=== PATIENT | female | born 1985 | race Caucasian/White ===

== ENCOUNTER 2024-05-07 13:50 | Emergency (ER) | payer MEDICAID, SELFPAY ==
[2024-05-07 13:57] VITALS: BP 156/97; PULSE 73; RESP 20; TEMP 36.8; O2SAT 97
--- NOTE | 2024-05-07 13:58 | XR_ITS ---
Examination: CT abdomen and pelvis without contrast. Coronal 3-D reconstructions. Sagittal 2-D reconstructions. Date and time of exam:May 07, 2024 1535 hrs. Indications: Right flank pain beginning 3 days ago CTDI: vol (mGy): 20.2 DLP: (mGycm): 1074 Technique: Axial images of the abdomen have been obtained, 3 mm slice thickness Intravenous contrast material has not been administered. Low dose protocols were performed. One or more of the following dose reduction techniques were used; automated exposure control, adjustment of the mA and/or KV according to patient size, use of iterative reconstruction technique. Findings: No focal liver or splenic lesions No gallstones No pancreatic or adrenal mass 5 mm nonobstructing right renal calculus, no hydronephrosis or ureteral calculi Normal appendix Anteverted uterus No adnexal mass No bladder mass Diffuse [id number] lumbar disc narrowing, 4 mm right paracentral L5-S1 lumbar disc bulge Impression: 5 mm nonobstructing right renal calculus, no hydronephrosis or ureteral calculi Normal appendix No bladder mass or bladder calculi L5-S1 4 mm right paracentral disc bulge
--- NOTE | 2024-05-07 13:59 | PD.EDRME ---
Rapid Medical Screening Exam RME Arrival date/time: 05/07/24 13:50 39-year-old female presents emergency department complaints of right flank pain Chief Complaint: Back Pain/Injury
[2024-05-07] MEDS: ONDANSETRON ODT 4 MG TABRAP PO (14:06)
[2024-05-07] MEDS: KETOROLAC INJ 30 MG/ML VIAL IM (14:06)
[2024-05-07 14:45] LABS: Basophils % (Auto) 0 % (0-2.5); Eosinophils % (Auto) 0 % (0-10); Hematocrit 42.5 % (36.0-46.0); Hemoglobin 14.3 g/dL (12.0-16.0); Immature Granulocytes % (Auto) 0 % (0-0); Immature Granulocytes Auto 0.06 Thou/mm3 (0.00-0.00); Lymphocytes # (Auto) 2.1 Thou/mm3 (1.0-4.8); Lymphocytes % (Auto) 14 % (10-50); Mean Corpuscular HGB Conc 33.6 g/dl (31.0-37.0); Mean Corpuscular Volume 77 fL (80-100); Monocytes # (Auto) 0.4 Thou/mm3 (0.0-0.8); Monocytes % (Auto) 3 % (0-12); Neutrophils # (Auto) 12.3 Thou/mm3 (1.8-7.7); Neutrophils % (Auto) 83 % (37-80); Nucleated Red Blood Cell % 0 /100 WBC (0); Platelet Count 281 Thou/mm3 (140-440); White Blood Count 14.8 Thou/mm3 (3.6-11.0)
[2024-05-07 14:59] LABS: Collection Type, Urine Clean Catch
[2024-05-07 15:01] LABS: Alanine Aminotransferase 22 U/L (10-49); Albumin/Globulin Ratio 2.1 (1.2-2.2); Alkaline Phosphatase 98 U/L (46-116); Anion Gap 10 (7-16); Aspartate Amino Transferase 16 U/L (0-34); BUN/Creatinine Ratio 13 Ratio (12-20); Bilirubin,Total 0.4 mg/dL (0.3-1.2); Blood Urea Nitrogen 8 mg/dL (9-23); Calcium 9.4 mg/dL (8.3-10.6); Calcium (Corrected) 9.4 mg/dL (8.5-10.1); Carbon Dioxide 24.3 mMol/L (20.0-31.0); Chloride 104 mMol/L (98-107); Creatinine (Component) 0.6 mg/dL (0.6-1.3); Globulin 2.4 gm/dL (2.3-3.5); Glucose 100 mg/dL (74-106); Lipase 32 U/L (12-53); Osmolality,Calculated 273 (275-295); Potassium 4.3 mMol/L (3.4-5.1); Sodium 138 mMol/L (136-145); Total Protein 7.4 gm/dL (5.7-8.2); eGFR > 60 See Note
[2024-05-07 15:13] LABS: Bilirubin,Urine Negative (Negative); Blood,Urine Negative (Negative); Clarity,Urine Clear (Clear/Hazy); Color,Urine Lt-Yellow (Lt Yel-Yel); Culture Indicated,Urine Not Indicated; Glucose, Urine Negative (Negative); Hyaline Casts,Urine < 1 /hpf (0-1); Ketones,Urine Negative (Negative); Leukocyte Esterase,Urine Negative (Negative); Nitrite,Urine Negative (Negative); PH,Urine 7.5 (5.0-7.0); Protein,Urine Trace (Neg - Trace); RBC,Urine 2 /hpf (0-3); Specific Gravity,Urine 1.021 (1.001-1.035); Squamous Epithelial Cell,Urine 3 /hpf (0-5); Urobilinogen,Urine Negative mg/dL (0.0-1.0); WBC,Urine 1 /hpf (0-5)
[2024-05-07 15:18] LABS: HCG Qualitative,Urine Negative
--- NOTE | 2024-05-07 17:48 | PD.EDBACK ---
ED Back Injury Pain RME/HPI General Chief Complaint: Back Pain/Injury Stated Complaint: SOMETHING WRONG WITH MY BACK Time Seen by Provider: 05/07/24 17:38 Arrival date/time: 05/07/24 13:50 RME / HPI RME / HPI Narrative: 39-year-old male patient, morbidly obese, came in for evaluation regarding right lumbar pain. Onset of symptoms earlier this morning, patient woke up with pain to the right lumbar area, described as sharp pain, radiating to the right lower abdomen. Patient denies any vomiting denies any fever denies any dysuria frequency or hematuria. Patient is ambulatory. Denies any trauma. Related Data Previous Rx's ?Medication ?Instructions ?Recorded albuterol sulfate 90 mcg/actuation 2 puff inhalation Q6HR PRN 06/23/15 aerosol inhaler (ProAir HFA) SHORTNESS OF BREATH #1 inh erythromycin 5 mg/gram (0.5 %) eye 1.25 cm ophthalmic (eye) TID 12/25/17 ointment conjunctivitis #1 g hydrocodone 5 mg-acetaminophen 325 1 tab PO TID #10 tabs 12/27/17 mg tablet ([place]) cyclobenzaprine 10 mg tablet 10 mg PO TID PRN muscle spasm #20 05/07/24 tabs ketorolac 10 mg tablet 10 mg PO Q8H PRN pain #20 tabs 05/07/24 Allergies Allergy/AdvReac Type Severity Reaction Status Date / Time sulfamethoxazole Allergy Severe HIVES Verified 05/07/24 13:52 trimethoprim Allergy Severe HIVES Verified 05/07/24 13:52 Review of Systems Review of Systems Narrative Review of Systems: Review of system reviewed and within normal limits except mentioned in HPI ED Exam Narrative Physical exam: VITAL SIGNS: Reviewed. GENERAL APPEARANCE: Alert and interactive, follows commands, no acute distress, HEAD AND FACE: Non-traumatic. ENT: PERRL, pink conjunctivitis, eyelid no trauma, Mucous membrane moist. NECK: Supple, nontender, no nuchal rigidity. CHEST: No tenderness, no crepitus, no paradoxical movement, no retractions. LUNGS: Clear, well ventilated, symmetric, no rales, no wheezing, no ronchi, no stridor, good breath sounds bilaterally. HEART: Regular rate, regular rhythm, no murmur, no gallops. ABDOMEN: Soft, positive bowel sounds, nondistended, no guarding, nontender, no rebound, no masses, RECTAL: Deferred. GENITAL: Deferred. NEUROLOGICAL: Gross motor function intact sensory function intact, Appropriate for age. MUSCULOSKELETAL: Right lumbar tenderness, no midline tenderness, full range of motion. EXTREMITIES: Nontender, full range of motion. SKIN: Color pink, dry, no rash, no lacerations, no abrasions, no contusions. LYMPHATICS: Deferred. Course Quality Measures none Orders Category Date Time Status CT abdomen pelvis wo con Stat Exams 05/07/24 13:58 Completed CBC Stat Lab 05/07/24 14:18 Completed Comprehensive Metabolic Panel Stat Lab 05/07/24 14:18 Completed HCG Qualitative,Urine Stat Lab 05/07/24 14:43 Completed Lipase Stat Lab 05/07/24 14:18 Completed UA, C/S IF [Urinalysis, C/S if Indicated] Stat Lab 05/07/24 14:43 Completed HYDROcodone/APAP 10/325 [[place] 10/325] Med 05/07/24 17:46 Once 1 tab PO X1 ONE Ketorolac Inj [Toradol Inj] Med 05/07/24 13:58 Discontinued 30 mg IM X1 ONE Ondansetron Odt [Zofran Odt] Med 05/07/24 13:58 Discontinued 4 mg PO X1 ONE Vital Signs Vital signs: Vital Signs Temperature 98.2 F 05/07/24 13:57 Pulse Rate 73 05/07/24 13:57 Respiratory Rate 20 05/07/24 13:57 Blood Pressure 156/97 H 05/07/24 13:57 Pulse Oximetry (%) 97 05/07/24 13:57 Oxygen Delivery Method Room Air 05/07/24 13:57 Back Pain / Injury MDM Narrative MDM Narrative:: 39-year-old male patient, morbidly obese, came in for evaluation regarding right lumbar pain. Onset of symptoms earlier this morning, patient woke up with pain to the right lumbar area, described as sharp pain, radiating to the right lower abdomen. Patient denies any vomiting denies any fever denies any dysuria frequency or hematuria. Patient is ambulatory. Denies any trauma. Patient's workup all came back unremarkable except for leukocytosis of 14.8. Except for a CT scan of the abdomen pelvis that showed 5 mm nonobstructing right renal calculus, no hydronephrosis or ureteral calculi Normal appendix No bladder mass or bladder calculi L5-S1 4 mm right paracentral disc bulge Discussed with the patient and family. Patient was advised to closely follow-up with spine surgeon regarding her L4 S1 paracentral disc bulge. Patient was also advised to follow-up with urologist for 5 mm nonobstructing right renal calculus. Prior to discharge patient told me that her pain is tolerable. Patient data External records reviewed:: None Clinical information provided by:: patient and family Social determinants that could affect healthcare access:: none Patient has the following chronic illnesses:: History of chronic back pain How is presenting disease/condition affected by chronic disease/condition?: exacerbated by Evaluation data The following diagnostics were reviewed and interpreted by me:: lab results and radiology exam(s) Lab and/or radiology exams considered but not ordered:: None Interpretation Summary: Patient's workup all came back unremarkable except for leukocytosis of 14.8. Except for a CT scan of the abdomen pelvis that showed 5 mm nonobstructing right renal calculus, no hydronephrosis or ureteral calculi Normal appendix No bladder mass or bladder calculi L5-S1 4 mm right paracentral disc bulge Medications / Prescriptions Medications or Prescriptions considered but not ordered:: None Medication administrations:: Medication Administration History Discontinued Medications Ketorolac Tromethamine (Ketorolac Inj 30 Mg/Ml Vial) 30 mg IM X1 ONE Stop: 05/07/24 13:59 Last Admin: 05/07/24 14:06 Dose: 30 mg Documented By: ALLY Ondansetron HCl (Ondansetron Odt 4 Mg Tabrap) 4 mg PO X1 ONE; Protocol Stop: 05/07/24 13:59 Last Admin: 05/07/24 14:06 Dose: 4 mg Documented By: ALLY Toradol [place] and Zofran Consultations Consultation(s) initiated? (list below): No Diagnosis Differential diagnosis back pain/injury: lumbar radiculopathy, sciatica and renal colic Most likely diagnosis given after review of the tests above:: Renal colic, lumbar disc disease, nephrolithiasis Admission Indicated Admission indicated?: not indicated Admission Request Was there a request for admission?: No Disposition Plan Disposition Plan: Discharge Discharge Attestation Discharge Attestation: The patient and all family members were given an opportunity to ask questions and understood the discharge instructions. Discharge instructions specifically effects, indications for sooner follow up or return to the emergency department, and the expected course of current diagnosis. Patient condition: Stable Discharge Plan Plan Patient Disposition: HOME (Self Care) Disposition Comment: stable Prescriptions/Referrals Prescriptions/Med Rec: New ketorolac 10 mg tablet 10 mg PO Q8H PRN (Reason: pain) Qty: 20 0RF Rx Instructions: maximum total duration of 5 days from all oral, intranasal, or parenteral formulations cyclobenzaprine 10 mg tablet 10 mg PO TID PRN (Reason: muscle spasm) Qty: 20 0RF No Action albuterol sulfate [ProAir HFA] 8.5 GM HFA aerosol inhaler 2 puff Inhalation Q6HR PRN (Reason: SHORTNESS OF BREATH) Qty: 1 0RF erythromycin 5 mg/gram (0.5 %) ointment 1.25 cm OPHTHALMIC TID Qty: 1 0RF hydrocodone-acetaminophen [[place]] 5-325 mg tablet 1 tab PO TID MDD 1 tab Qty: 10 0RF Referrals: Yolanda Jaramillo PA-C [Primary Care Provider] - In 1 week Problem List Clinical Impression: Renal colic, Lumbar disc disease Patient/Caregiver Discharge Instructions Discharge Activity: activity as tolerated Education Materials: Common Spine and Disk Problems Additional Instructions: Thank you for the opportunity for serving you today. You are stable for discharged . You are advised to: Follow-up with your PCP in 1 to 2 days and asked for referral to spine surgeon regarding your disc bulging and urologist regarding your kidney stone Return to ED for worsening of symptoms Increase oral fluids Take medication as prescribed Print Language: Tajik Stand Alone Forms: Kaylyn Award Info., Patient Portal Info Letter [facility] Supervising Physician [facility] Supervising Physician: MD Lou
[2024-05-07] MEDS: HYDROcodone/APAP 10/325 TAB PO (18:06)
== END 2024-05-07 19:20 | disposition home or self-care (01) ==
PROVIDERS: Nurse Practitioner Primary Care; Emergency Provider Emergency Medicine; PCP Physician Assistant
DX: M51.370 Other intervertebral disc degeneration, lumbosacral region with discogenic back pain only (principal); N20.0 Calculus of kidney; D72.829 Elevated white blood cell count, unspecified
CPT/HCPCS: 36415; 74176; 80053; 81001; 81025; 83690; 85025; 96372; 99284; J1885; Q0162; A9270

== ENCOUNTER → 2024-12-01 | Outpatient (BNVA) | payer MEDICAID, SELFPAY | END | disposition home or self-care (01) | PROVIDERS: PCP Physician Assistant; Referring Provider Physician Assistant; Visit Provider Urology | DX: N39.0 Urinary tract infection, site not specified (principal); N20.0 Calculus of kidney; E66.9 Obesity, unspecified; Z68.41 Body mass index [BMI] 40.0-44.9, adult | CPT/HCPCS: 81003; 99213; G0463 ==